=== PATIENT | female | born 1950 | race Caucasian/White ===

== ENCOUNTER 2019-01-23 09:15 | Day surgery (SDC) | payer MEDICARE ==
[2019-01-21 15:29] LABS: BASOPHILS 0.6 % (0-2); EOSINOPHILS 1.6 % (0-7); HEMATOCRIT 40.1 % (36.0-48.0); HEMOGLOBIN 13.1 g/dL (12-16); LYMPHOCYTES 23.8 % (15-50); MCH 30.7 pg (26.0-34.0); MCHC 32.7 g/dL (31.0-37.0); MCV 93.9 fL (80.0-100.0); MONOCYTES 6.5 % (2-11); NEUTROPHILS 67.5 % (40-80); PLATELET COUNT 356 10x3/uL (130-400); RBC 4.27 10x6/uL (4.00-5.40); WBC 6.3 10x3/uL (4.8-10.8)
[2019-01-21 15:44] LABS: CALC OSMOLALITY 280 mosm/kg (275-300); CALCIUM 8.9 mg/dL (8.5-10.1); CARBON DIOXIDE 30.4 mmol/L (21.0-32.0); CHLORIDE - SERUM 102 mmol/L (98-107); CREATININE - SERUM 0.7 mg/dL (0.6-1.3); GLUCOSE 91 mg/dL (74-106); SODIUM 140 mmol/L (136-145); UREA NITROGEN 17 mg/dL (7-18); eGFR NON AFRICAN AMERICAN 88 mL/min (90-120)
[~2019-01-23] VITALS: Ht 165.1 cm; Wt 60.8 kg
[2019-01-23 09:28] VITALS: BP 116/55; Ht 165.1 cm; Wt 60.8 kg
== END 2019-01-23 15:40 | disposition home or self-care (01) ==
LOC: D.OPS 09:15 → D.PAN 10:45 → D.OPS 11:10
PROVIDERS: ATTEND Orthopaedic Surgery
DX: S52.501A Unspecified fracture of the lower end of right radius, initial encounter for closed fracture (principal); S52.611A Displaced fracture of right ulna styloid process, initial encounter for closed fracture; X58.XXXA Exposure to other specified factors, initial encounter; Z01.812 Encounter for preprocedural laboratory examination